=== PATIENT | female | born 1945 | race Caucasian/White ===

== ENCOUNTER → 2017-10-10 | Outpatient (CLI) | payer OTHER ==
[~2017-10-10] MED LIST: ALBU90OI6 INH; ASPI81EC PO; Aspirin EC81 MG PO; CALCIUM PO; CALGLU500 PO; CITA20 PO; DIAZ5 PO; DIPATR PO; ESTR1 PO; ESTR2 PO; GABA300 PO; LATA.005SO BOTHEYES; NAPR500 PO; NIFE30ER PO; NIFE60ER PO; NIFEDICAL PO; OMEP20ER PO; OXYACE5T PO; OXYACE7.5T PO; OXYC10TA19 PO; OXYC5 PO; PARO20 PO; POLY17UD PO; POTA8 PO; POTCHL10ER PO; PROM12.5S PR; PROM25 PO; PROM25S PR; Prilosec Otc20 MG PO; RANI150 PO; RXPROM25 PO; STOOL SOFTENER; TIZA4 PO; TRAM50 PO; TRAZ100 PO
== END | disposition home or self-care (01) ==
LOC: LAB SHORT 12:44 → PLD 12:44
DX: D48.5 Neoplasm of uncertain behavior of skin (principal)
CPT/HCPCS: 88305

== ENCOUNTER → 2018-04-12 | Outpatient (CLI) | payer OTHER | LOC: LAB SHORT 07:54 → PLD 07:54 | DX: L91.8 Other hypertrophic disorders of the skin (principal) | CPT/HCPCS: 88304 ==

== ENCOUNTER 2019-07-21 21:19 | Emergency (ER) | payer OTHER ==
[~2019-07-21] VITALS: Ht 165.1 cm; Wt 46.7 kg
[2019-07-21 21:39] LABS: Source, Urine Clean Catch
[2019-07-21] MEDS ORDERED: CALCIUM CIT 311 EACH PO (21:39)
[2019-07-21] MEDS ORDERED: ONDA4 PO (21:39)
[2019-07-21] MEDS ORDERED: Zantac150 MG PO (21:39)
[2019-07-21 21:45] LABS: Bilirubin, Urine Neg (Neg); Blood, Urine Neg (Neg); Glucose Qualitative, Urine Neg (Neg); Ketones, Urine Neg (Neg); Leukocyte Esterase, Urine Neg (Neg); Nitrite, Urine Neg (Neg); Protein, Urine Neg (Neg); Urobilinogen, Urine NORM (Normal)
[2019-07-21 21:46] LABS: BASOPHILS ABSOLUTE AUTO 0.08 K/mm3 (0.00-0.23); BASOPHILS PERCENT AUTO 1 % (0-2); EOSINOPHILS ABSOLUTE AUTO 0.39 K/mm3 (0.00-0.68); EOSINOPHILS PERCENT AUTO 7 % (0-6); Hematocrit 32.1 % (33.0-51.0); Hemoglobin 10.9 g/dL (11.5-16.0); IMMATURE GRAN ABSOLUTE AUTO 0.01 K/mm3 (0.00-0.10); IMMATURE GRAN PERCENT AUTO 0 % (0-1); LYMPHOCYTES ABSOLUTE AUTO 2.09 K/mm3 (0.84-5.20); LYMPHOCYTES PERCENT AUTO 37 % (21-46); MONOCYTES ABSOLUTE AUTO 0.76 K/mm3 (0.16-1.47); MONOCYTES PERCENT AUTO 14 % (4-13); Mean Corpuscular HGB 31.5 pg (26.0-34.0); Mean Corpuscular Volume 93 fL (80-100); Mean Platelet Volume 8.9 fL (9.1-12.4); NEUTROPHILS ABSOLUTE AUTO 2.27 K/mm3 (1.96-9.15); NEUTROPHILS PERCENT AUTO 41 % (41-73); Platelet Count 327 K/mm3 (150-400); RDW Standard Deviation 47.9 fL (35.1-46.3); Red Blood Cell Count 3.46 M/mm3 (3.80-5.20)
[2019-07-21 21:50] LABS: Appearance, Urine Clear (Clear); Color, Urine Yellow (P-Yellow)
[2019-07-21] MEDS ORDERED: NIFE60ER PO (21:50)
[2019-07-21] MEDS ORDERED: OMEPRAZOLE20 MG PO (21:50)
[2019-07-21] MEDS ORDERED: TIZA4 PO (21:51)
[2019-07-21] MEDS ORDERED: DULO30 PO (21:51)
[2019-07-21] MEDS ORDERED: CITA20 PO (21:51)
[2019-07-21 22:05] LABS: Alanine Aminotransfer (ALT/SGP 17 U/L (12-78); Albumin, Blood 3.2 g/dL (3.4-5.0); Albumin/Globulin Ratio 0.9 (0.8-1.8); Alk Phos 58 U/L (50-136); Anion Gap 6 mmol/L (6-16); Aspartate Aminotrans (AST/SGOT 27 U/L (12-37); Bilirubin, Total 0.2 mg/dL (0.1-1.0); Blood Urea Nitrogen 12 mg/dL (8-24); CO2, Blood 24 mmol/L (21-32); Calcium, Blood 8.2 mg/dL (8.5-10.1); Chloride, Blood 102 mmol/L (98-108); Creatinine, Blood 0.67 mg/dL (0.40-1.00); Globulin, Blood 3.4 g/dL (2.2-4.0); Glomerular Filtration Rate >60 (60-); Glucose, Blood 75 mg/dL (70-99); Potassium, Blood 4.7 mmol/L (3.5-5.5); Sodium, Blood 132 mmol/L (136-145); Total Protein, Blood 6.6 g/dL (6.4-8.2)
[2019-07-21] MEDS ORDERED: Norco 5-325 Ta1 EACH PO (23:50)
[2019-07-21] MEDS ORDERED: METPRE4DP PO (23:50)
[2019-07-21] MEDS ORDERED: Vibramycin100 MG PO (23:50)
== END 2019-07-22 00:10 | disposition home or self-care (01) ==
LOC: ER 21:19
PROVIDERS: Emergency Medicine
DX: J18.9 Pneumonia, unspecified organism (principal); M47.22 Other spondylosis with radiculopathy, cervical region; F17.200 Nicotine dependence, unspecified, uncomplicated; Z88.0 Allergy status to penicillin; Z79.899 Other long term (current) drug therapy
CPT/HCPCS: 71045; 72040; 80053; 81003; 84484; 85025; 93005; 93010; 96374; 96375; 99285-25; J2270; J2405

== ENCOUNTER 2023-09-20 08:55 | Day surgery (SDC) | payer OTHER ==
[~2023-09-20] VITALS: Ht 157.5 cm; Wt 44.1 kg
[~2023-09-20 08:55] MED LIST changes: +Balanced Salt Epinephrine Irrigation Solution 500 mL IR SCH; +CALCIUM CIT 311 EACH PO; +DULO30 PO; +Desyrel150 MG PO; +Lidocaine HCl/Pf 1% 5 ML VIAL XX SCH; +METPRE4DP PO; +Moxifloxacin HCL 0.5 MG/0.1 ML 0.4MLSYR RIGHTEYE SCH; +NS 500 ML IV ONE; +Norco 5-325 Ta1 EACH PO; +Norco 7.5-3251 EACH PO; +OMEPRAZOLE20 MG PO; +ONDA4 PO; +PHENYLEPHRINE\\TROPICAMIDE\\TETRACAINE OPHTHALMIC DILATING SOLN RIGHTEYE PRN; +Povidone-Iodine 450 DROP/30 ML Solution ONE; +Povidone-Iodine 450 DROP/30 ML Solution RIGHTEYE SCH; +Vibramycin100 MG PO; +Zanaflex2 M1 PO; +Zantac150 MG PO
[2023-09-20] MEDS ORDERED: CIMETIDINE PO (09:41)
[2023-09-20] MEDS ORDERED: ONDA4 PO (09:42)
[2023-09-20] MEDS ORDERED: MONT10T PO (09:45)
[2023-09-20] MEDS ORDERED: Ventolin/Prove6.7 GM (09:46)
[2023-09-20] MEDS ORDERED: NAPROXEN500 MG PO (09:46)
[2023-09-20] MEDS ORDERED: NS 500 ML IV ONE (09:50)
--- NOTE | 2023-09-20 09:50 | NUR ---
09/20/23 0950 Arianna Cassidy AT [id number] [phone]
[2023-09-20] MEDS ORDERED: Tetracaine HCl 0.5% Opth Soln 15 ml XX ONE (10:18)
[2023-09-20] MEDS ORDERED: FentaNYL Citrate 50 MCG/ML 2 ML Injection ONE (10:20)
[2023-09-20] MEDS ORDERED: Midazolam HCl 1MG / ML 2ML Vial ONE (10:20)
[2023-09-20] MEDS ORDERED: Ondansetron HCl 2 MG / ML 2ML Vial ONE (10:29)
[2023-09-20 10:46] VITALS: BP 112/69
[2023-09-21] MEDS ORDERED: Alphagan P5 ML (09:09)
[2023-09-21] MEDS ORDERED: DICLOFENAC PO (09:13)
== END 2023-09-20 11:05 | disposition home or self-care (01) ==
LOC: ORSCSDS 08:55
PROVIDERS: Student in an Organized Health Care Education/Training Program
PROC: 08RJ3JZ Replacement of Right Lens with Synthetic Substitute, Percutaneous Approach (ICD-10-PCS; principal; 2023-09-20 10:30)
DX: H25.13 Age-related nuclear cataract, bilateral (principal); H21.81 Floppy iris syndrome; H40.1134 Primary open-angle glaucoma, bilateral, indeterminate stage; J44.9 Chronic obstructive pulmonary disease, unspecified; K21.9 Gastro-esophageal reflux disease without esophagitis; Z86.19 Personal history of other infectious and parasitic diseases; Z79.899 Other long term (current) drug therapy; F17.210 Nicotine dependence, cigarettes, uncomplicated
CPT/HCPCS: J2250; J2405; J3010; J7040; V2632

== ENCOUNTER 2023-09-27 09:01 | Day surgery (SDC) | payer OTHER ==
[~2023-09-27] VITALS: Ht 157.5 cm; Wt 45.3 kg
[~2023-09-27 09:01] MED LIST changes: +Alphagan P5 ML; +CIMETIDINE PO; +DICLOFENAC PO; +MONT10T PO; +Moxifloxacin HCL 0.5 MG/0.1 ML 0.4MLSYR LEFTEYE SCH; -Moxifloxacin HCL 0.5 MG/0.1 ML 0.4MLSYR RIGHTEYE SCH; +NAPROXEN500 MG PO; +PHENYLEPHRINE\\TROPICAMIDE\\TETRACAINE OPHTHALMIC DILATING SOLN LEFTEYE PRN; -PHENYLEPHRINE\\TROPICAMIDE\\TETRACAINE OPHTHALMIC DILATING SOLN RIGHTEYE PRN; +Povidone-Iodine 450 DROP/30 ML Solution LEFTEYE SCH; -Povidone-Iodine 450 DROP/30 ML Solution RIGHTEYE SCH; +Ventolin/Prove6.7 GM
[2023-09-27] MEDS ORDERED: BREZTRI AEROS10.7 GM (10:04)
[2023-09-27] MEDS ORDERED: Ventolin/Prove6.7 GM INH (10:04)
[2023-09-27] MEDS ORDERED: NEURONTIN300 MG PO (10:04)
[2023-09-27] MEDS ORDERED: NS 500 ML IV ONE (10:07)
[2023-09-27] MEDS ORDERED: Midazolam HCl 1MG / ML 2ML Vial ONE ×2 (10:23→10:36)
[2023-09-27] MEDS ORDERED: Tetracaine HCl 0.5% Opth Soln 15 ml XX ONE (10:25)
[2023-09-27 11:05] VITALS: BP 133/63
== END 2023-09-27 11:22 | disposition home or self-care (01) ==
LOC: ORSCSDS 09:01
PROVIDERS: Student in an Organized Health Care Education/Training Program
PROC: 08RK3JZ Replacement of Left Lens with Synthetic Substitute, Percutaneous Approach (ICD-10-PCS; principal; 2023-09-27 10:30)
DX: H25.12 Age-related nuclear cataract, left eye (principal); Z96.1 Presence of intraocular lens; H21.81 Floppy iris syndrome; H21.542 Posterior synechiae (iris), left eye; I10 Essential (primary) hypertension; F17.210 Nicotine dependence, cigarettes, uncomplicated; K21.9 Gastro-esophageal reflux disease without esophagitis; H40.1130 Primary open-angle glaucoma, bilateral, stage unspecified
CPT/HCPCS: J2250; J7040; V2632

== ENCOUNTER → 2025-04-02 | Outpatient (CLI) | payer OTHER ==
[~2025-04-02] MED LIST changes: +BREZTRI AEROS10.7 GM; -Balanced Salt Epinephrine Irrigation Solution 500 mL IR SCH; -Lidocaine HCl/Pf 1% 5 ML VIAL XX SCH; -Moxifloxacin HCL 0.5 MG/0.1 ML 0.4MLSYR LEFTEYE SCH; +NEURONTIN300 MG PO; -NS 500 ML IV ONE; -PHENYLEPHRINE\\TROPICAMIDE\\TETRACAINE OPHTHALMIC DILATING SOLN LEFTEYE PRN; -Povidone-Iodine 450 DROP/30 ML Solution LEFTEYE SCH; -Povidone-Iodine 450 DROP/30 ML Solution ONE; +Ventolin/Prove6.7 GM INH
[2025-04-04 14:05] LABS: Stool Occult Bld Immuno 1 Negative (NEGATIVE)
== END | disposition home or self-care (01) ==
LOC: LAB 17:15 → LAB SHORT 17:15
PROVIDERS: Family Medicine
DX: D64.9 Anemia, unspecified (principal)
CPT/HCPCS: G0328